=== PATIENT | male | born 1995 | race Two or more races ===

== ENCOUNTER 2020-02-05 18:54 | Emergency (ER) | payer OTHER ==
--- NOTE | 2020-02-05 19:46 | ER Document Report ---
ED GI/ - General Chief Complaint: STD Exposure Stated Complaint: STD CHECK Time Seen by Provider: 02/05/20 19:40 Mode of Arrival: Ambulatory Information source: Patient Notes: 24-year-old male presented to ED for complaint of unprotected sex and since his roommate was coming in again tested for gonorrhea and chlamydia he thought he would regularly get tested also. He states he is not having any symptoms or anything. He is not have any pain discomfort or discharge. He is alert oriented respirations regular nonlabored. He is a active duty [employer]. He states he does not smoke drink or use any drugs. He states he does not have any past medical history or past surgical history. - HPI Patient complains to provider of: Other Onset: Other - None none Quality of pain: No pain Severity in ED: None Pain Level: Denies Location: Other Sexual history: Unprotected intercourse Associated symptoms: None Exacerbated by: Denies Relieved by: Denies Similar symptoms previously: No Recently seen / treated by doctor: No - Related Data Allergies/Adverse Reactions: No Known Allergies Allergy (Unverified 02/05/20 19:38) Home Medications: ZOLOFT. TRAZADONE Past Medical History - General Information source: Patient - Social History Smoking Status: Never Smoker Frequency of alcohol use: None Drug Abuse: None Occupation: Active duty [employer] Family History: Reviewed & Not Pertinent Patient has suicidal ideation: No Patient has homicidal ideation: No - Past Medical History Cardiac Medical History: Reports: None Pulmonary Medical History: Reports: None EENT Medical History: Reports: None Neurological Medical History: Reports: None Endocrine Medical History: Reports: None Renal/ Medical History: Reports: None Malignancy Medical History: Reports None GI Medical History: Reports: None Musculoskeletal Medical History: Reports None Skin Medical History: Reports None Psychiatric Medical History: Reports: None Traumatic Medical History: Reports: None Infectious Medical History: Reports: None Surgical Hx: Negative Past Surgical History: Reports: None - Immunizations Immunizations up to date: Yes Hx Diphtheria, Pertussis, Tetanus Vaccination: Yes Review of Systems - Review of Systems Constitutional: No symptoms reported EENT: No symptoms reported Cardiovascular: No symptoms reported Respiratory: No symptoms reported Gastrointestinal: No symptoms reported Genitourinary: No symptoms reported Male Genitourinary: No symptoms reported Musculoskeletal: No symptoms reported Skin: No symptoms reported Hematologic/Lymphatic: No symptoms reported Neurological/Psychological: No symptoms reported -: Yes All other systems reviewed and negative Physical Exam - Vital signs Vitals: Temp Pulse Resp BP Pulse Ox 98.0 F 87 16 150/92 H 97 02/05/20 19:28 02/05/20 19:28 02/05/20 19:28 02/05/20 19:28 02/05/20 19:28 Interpretation: Normal - General General appearance: Appears well, Alert - HEENT Head: Normocephalic, Atraumatic Eyes: Normal Pupils: PERRL - Respiratory Respiratory status: No respiratory distress Chest status: Nontender Breath sounds: Normal Chest palpation: Normal - Cardiovascular Rhythm: Regular Heart sounds: Normal auscultation Murmur: No - Abdominal Inspection: Normal Distension: No distension Bowel sounds: Normal Tenderness: Nontender Organomegaly: No organomegaly - Back Back: Normal, Nontender - Extremities General upper extremity: Normal inspection, Nontender, Normal color, Normal ROM, Normal temperature General lower extremity: Normal inspection, Nontender, Normal color, Normal ROM, Normal temperature, Normal weight bearing. No: Brigitte's sign - Neurological Neuro grossly intact: Yes Cognition: Normal Orientation: AAOx4 Elian Coma Scale Eye Opening: Spontaneous Raymond Coma Scale Verbal: Oriented Elian Coma Scale Motor: Obeys Commands Raymond Coma Scale Total: 15 Speech: Normal Motor strength normal: LUE, RUE, LLE, RLE Sensory: Normal - Psychological Associated symptoms: Normal affect, Normal mood - Skin Skin Temperature: Warm Skin Moisture: Dry Skin Color: Normal Course - Re-evaluation Re-evalutation: 02/05/20 21:22 Discussed the UA results with patient and written report given to patient. Instructed patient to follow-up with his doctor for another check on his urine as he had small amount of blood in his urine. He was informed that if there was any bacteria grown out on his urine he would be called to start on antibiotics. He was also instructed to please call [phone] tomorrow for the results of his GC and chlamydia. If it the anything is positive someone will get ahold to him. Patient verbalized understanding and agreement with treatment plan and patient was discharged home. - Vital Signs Vital signs: Temp Pulse Resp BP Pulse Ox 97.7 F 87 16 150/92 H 97 02/05/20 19:38 02/05/20 19:28 02/05/20 19:28 02/05/20 19:28 02/05/20 19:28 - Laboratory Laboratory results interpreted by me: 02/05/20 20:46 Urine Protein 100 H Urine Blood SMALL H Urine Urobilinogen 2.0 H Leukocyte Esterase Rfl TRACE H Discharge - Discharge Clinical Impression: History of unprotected sex, No symptoms Condition: Stable Disposition: HOME, SELF-CARE Additional Instructions: You were seen today for STD checks because you state you had unprotected sex and would you were concerned. You do not have any symptoms any penile drainage any burning frequency or urgency with urination. Your urine has been sent for testing for gonorrhea and chlamydia. These results will not be back for a couple hours. You want to call the hospital tomorrow at [phone] you can ask for the results of these test. If they are positive you will need to go to your provider and get treated for positive test. FOLLOW-UP CARE: If you have been referred to a physician for follow-up care, call the physicians office for an appointment as you were instructed or within the next two days. If you experience worsening or a significant change in your symptoms, notify the physician immediately or return to the Emergency Department at any time for re-evaluation. Forms: Elevated Blood Pressure
[2020-02-05 21:09] LABS: APPEARANCE,URINE SLIGHTLY-CLOUDY; BILIRUBIN,URINE NEGATIVE (NEGATIVE); COLOR,URINE YELLOW; GLUCOSE, URINE NEGATIVE (NEGATIVE); KETONES,URINE NEGATIVE (NEGATIVE); PROTEIN,URINE 100 mg/dL (NEGATIVE)
[2020-02-05 21:44] VITALS: BP 115/73
[2020-02-05 22:31] LABS: CHLAM PCR DETECTED (NOT DETECT)
== END 2020-02-05 21:22 | disposition home or self-care (01) ==
LOC: ER 18:54
DX: Z20.2 Contact with and (suspected) exposure to infections with a predominantly sexual mode of transmission (principal)
CPT/HCPCS: 81001; 87086; 87491; 87591; 99283